=== PATIENT | male | born 1935 | race Two or more races ===

== ENCOUNTER 2022-09-28 02:47 | Emergency (ER) | payer MEDICARE, MEDICAID ==
[~2022-09-28] VITALS: Ht 172.7 cm; Wt 50.0 kg
[2022-09-28 02:51] VITALS: TEMP 98.7
[2022-09-28] MEDS ORDERED: SODIUM PHOSPHATE,MONO-DIBASIC 133 ML ENEMA PR ONE (04:15)
[2022-09-28 05:13] VITALS: BP 156/55; PULSE 55; RESP 19
== END 2022-09-28 05:24 | disposition home or self-care (01) ==
LOC: EMS 02:49
DX: K59.00 Constipation, unspecified (principal); N15.9 Renal tubulo-interstitial disease, unspecified; F03.90 Unspecified dementia, unspecified severity, without behavioral disturbance, psychotic disturbance, mood disturbance, and anxiety; Z87.440 Personal history of urinary (tract) infections; Z87.891 Personal history of nicotine dependence
CPT/HCPCS: 74018; 99283